=== PATIENT | female | born 1995 | race African-American/Black ===

== ENCOUNTER 2022-03-25 14:24 | Inpatient (IN) | payer OTHER ==
[2022-03-25] MEDS ORDERED: SODIUM CHLORIDE 1,000 ML IV STA ×2 (16:42→20:02)
[2022-03-25] MEDS ORDERED: ONDANSETRON 4 MG/2 ML VIAL IVPUSH ONE ×2 (16:42→21:29)
[2022-03-25] MEDS ORDERED: ACETAMINOPHEN 1000 MG/100 ML BAG IVPB ONE (16:42)
[2022-03-25] MEDS ORDERED: ACETAMINOPHEN INJECTION 100 ML IVPB ONE (16:55)
[2022-03-25] MEDS ORDERED: ONDANSETRON 4 MG/2 ML VIAL ONE ×2 (16:56→21:29)
[2022-03-25 17:52] LABS: HEMATOCRIT 36.6 % (32.4-45.2); HEMOGLOBIN 12.5 GM/dL (10.7-15.3); MCH 28.6 pg (25.7-33.7); MEAN CELL VOLUME 84.1 fl (80-96); MEAN PLT VOLUME 8.8 fl (7.5-11.1); PLATELET COUNT 341 10^3/uL (134-434); RBC 4.35 M/mm3 (3.60-5.2)
[2022-03-25 17:56] LABS: WHITE BLOOD COUNT 30.5 K/mm3 (4.0-10.0)
[2022-03-25 18:07] LABS: ALBUMIN 4.3 g/dl (3.4-5.0); BLOOD UREA NITROGEN 14.3 mg/dL (7-18)
[2022-03-25 18:10] LABS: CREATININE 0.9 mg/dL (0.55-1.3)
[2022-03-25 18:11] LABS: BILIRUBIN,TOTAL 0.6 mg/dL (0.2-1)
[2022-03-25 18:12] LABS: TOT PROT 8.1 g/dl (6.4-8.2)
[2022-03-25 18:18] LABS: ANISOCYTOSIS 0; HELMET CELLS 0; HOWELL-JOLLY BODIES 0; MACROCYTOSIS 0; OVALOCYTE 0; ROULEAU 0; SICKELED CELLS 0; TARGET CELLS 0; TEAR DROP CELLS 0; TOXIC GRANULATION 0
[2022-03-25] MEDS ORDERED: CEFTRIAXONE 1,000 MG in DEXTROSE 5%-WATER - 50 ML IVPB ONE (20:02)
[2022-03-25 20:06] LABS: EPI CELLS 1 /uL (0-25.1); HYALINE CASTS 2 /uL (0-3.1); URINE APPEARANCE CLOUDY; URINE BACTERIA >9,000 /uL (0-1359); URINE BILIRUBIN NEGATIVE (NEGATIVE); URINE COLOR YELLOW; URINE GLUCOSE (UA) NEGATIVE (NEGATIVE); URINE KETONE NEGATIVE (NEGATIVE); URINE LEUK ESTERASE 1+ (NEGATIVE); URINE NITRITE POSITIVE (NEGATIVE); URINE PROTEIN TRACE (NEGATIVE); URINE RBC 48 /uL (0-23.9); URINE UROBILINOGEN 0.2 mg/dL (0.2-1.0); URINE WBC 361 /uL (0-25.8)
[2022-03-25 20:07] LABS: HCG,QUALITATIVE URINE Negative
[2022-03-25] MEDS ORDERED: CEFTRIAXONE 1 GM/50 ML BAG ONE (20:08)
[2022-03-25 20:11] LABS: LACTIC ACID 2.8 mmol/L (0.4-2.0)
[2022-03-25] MEDS ORDERED: KETOROLAC TROMETHAMINE 30 MG/1 ML VIAL IVPUSH ONE (21:57)
[2022-03-25] MEDS ORDERED: KETOROLAC TROMETHAMINE 30 MG/1 ML VIAL ONE (22:03)
[2022-03-25 22:39] LABS: LACTIC ACID 2.3 mmol/L (0.4-2.0)
[2022-03-25 22:49] LABS: HEMATOCRIT 34.5 % (32.4-45.2); HEMOGLOBIN 11.4 GM/dL (10.7-15.3); MCH 28.1 pg (25.7-33.7); MEAN CELL VOLUME 85.1 fl (80-96); MEAN PLT VOLUME 9.1 fl (7.5-11.1); PLATELET COUNT 309 10^3/uL (134-434); RBC 4.06 M/mm3 (3.60-5.2); RDW 12.3 % (11.6-15.6); WHITE BLOOD COUNT 29.2 K/mm3 (4.0-10.0)
[2022-03-25 23:12] LABS: ANISOCYTOSIS 0; HELMET CELLS 0; HOWELL-JOLLY BODIES 0; MACROCYTOSIS 0; OVALOCYTE 0; ROULEAU 0; SICKELED CELLS 0; TARGET CELLS 0; TEAR DROP CELLS 0; TOXIC GRANULATION 0
[2022-03-26] MEDS ORDERED: ALBUTEROL SO4 HFA INHALER IH PRN (01:17)
[2022-03-26] MEDS: SODIUM CHLORIDE 1,000 ML IV SCH ×2 (02:07→16:00)
[2022-03-26] MEDS ORDERED: ACETAMINOPHEN 1000 MG/100 ML BAG IVPB ONE (03:07)
[2022-03-26 06:27] LABS: BASO % 0.3 % (0-2.0); HEMATOCRIT 32.2 % (32.4-45.2); HEMOGLOBIN 10.9 GM/dL (10.7-15.3); LYMPH % 5.7 % (8-40); MCH 28.4 pg (25.7-33.7); MCHC 33.8 g/dl (32.0-36.0); MEAN PLT VOLUME 8.9 fl (7.5-11.1); MONO % 6.4 % (3.8-10.2); NEUT % 87.6 % (42.8-82.8); PLATELET COUNT 298 10^3/uL (134-434); RBC 3.83 M/mm3 (3.60-5.2); RDW 12.4 % (11.6-15.6)
[2022-03-26 06:31] LABS: WHITE BLOOD COUNT 30.1 K/mm3 (4.0-10.0)
[2022-03-26 06:46] LABS: BLOOD UREA NITROGEN 12.3 mg/dL (7-18); CALCIUM 8.8 mg/dL (8.5-10.1)
[2022-03-26 06:47] LABS: ALBUMIN 3.4 g/dl (3.4-5.0)
[2022-03-26 06:50] LABS: CREATININE 0.9 mg/dL (0.55-1.3)
[2022-03-26 06:51] LABS: BILIRUBIN,TOTAL 0.6 mg/dL (0.2-1); TOT PROT 6.7 g/dl (6.4-8.2)
[2022-03-26 08:39] LABS: ANISOCYTOSIS 2+; MACROCYTOSIS 0
[2022-03-26] MEDS ORDERED: CEFTRIAXONE 1 GM in DEXTROSE 5%-WATER - 50 ML IVPB SCH (10:00)
[2022-03-26] MEDS ORDERED: ENOXAPARIN NA (PORCINE) 40 MG/0.4 ML DISP.SYRIN SQ ONE (10:00)
[2022-03-26] MEDS ORDERED: CEFTRIAXONE 1 GM/50 ML BAG ONE ×2 (10:01→11:13)
[2022-03-26] MEDS ORDERED: CEFTRIAXONE 1 GM in DEXTROSE 5%-WATER - 50 ML IVPB ONE (11:00)
[2022-03-26] MEDS: ENOXAPARIN NA (PORCINE) 40 MG/0.4 ML DISP.SYRIN SQ SCH (11:03)
[2022-03-26] MEDS: ACETAMINOPHEN 325 MG TABLET (FP) PO PRN ×2 (11:39→18:55)
[2022-03-26] MEDS: KETOROLAC TROMETHAMINE 30 MG/1 ML VIAL IVPUSH PRN (16:34)
[2022-03-26 17:15] VITALS: BMI 27.7
[2022-03-26] MEDS ORDERED: PIPERACILLIN/TAZOBACTAM 3.375 GM VIAL IVPB ONE (17:36)
[2022-03-26] MEDS ORDERED: DEXTROSE 5%-WATER - 50 ML IVPB ONE (17:36)
[2022-03-26] MEDS: PIPERACILLIN/TAZOB 3.375 GM 3.375 GM in DEXTROSE 5%-WATER - 50 ML IVPB SCH (18:00)
[2022-03-26] MEDS: ESCITALOPRAM OXALATE 10 MG TABLET PO SCH (21:24)
[2022-03-27] MEDS ORDERED: PIPERACILLIN/TAZOBACTAM 3.375 GM VIAL IVPB ONE ×3 (01:25→17:15)
[2022-03-27] MEDS ORDERED: DEXTROSE 5%-WATER - 50 ML IVPB ONE ×3 (01:25→17:15)
[2022-03-27] MEDS: ACETAMINOPHEN 325 MG TABLET (FP) PO PRN ×2 (01:29→21:25)
[2022-03-27] MEDS: PIPERACILLIN/TAZOB 3.375 GM 3.375 GM in DEXTROSE 5%-WATER - 50 ML IVPB SCH ×3 (01:29→17:17)
[2022-03-27] MEDS: SODIUM CHLORIDE 1,000 ML IV SCH ×2 (01:52→20:36)
[2022-03-27] MEDS ORDERED: ONDANSETRON 4 MG/2 ML VIAL IVPUSH ONE (02:04)
[2022-03-27] MEDS: KETOROLAC TROMETHAMINE 30 MG/1 ML VIAL IVPUSH PRN ×3 (06:23→20:31)
[2022-03-27] MEDS: ENOXAPARIN NA (PORCINE) 40 MG/0.4 ML DISP.SYRIN SQ SCH (09:03)
[2022-03-27 09:37] LABS: HEMATOCRIT 31.3 % (32.4-45.2); HEMOGLOBIN 10.4 GM/dL (10.7-15.3); MCH 28.3 pg (25.7-33.7); MCHC 33.3 g/dl (32.0-36.0); MEAN CELL VOLUME 85.2 fl (80-96); MEAN PLT VOLUME 9.2 fl (7.5-11.1); PLATELET COUNT 258 10^3/uL (134-434); RBC 3.67 M/mm3 (3.60-5.2); RDW 12.6 % (11.6-15.6); WHITE BLOOD COUNT 27.2 K/mm3 (4.0-10.0)
[2022-03-27] MEDS ORDERED: CEFTRIAXONE 2 GM in DEXTROSE 5%-WATER 100 ML IVPB SCH (10:00)
[2022-03-27 10:05] LABS: ANISOCYTOSIS 2+; MACROCYTOSIS 0
[2022-03-27 10:18] LABS: BLOOD UREA NITROGEN 9.7 mg/dL (7-18); CALCIUM 8.8 mg/dL (8.5-10.1)
[2022-03-27 10:20] LABS: MAGNESIUM 1.9 mg/dL (1.8-2.4)
[2022-03-27 10:23] LABS: CREATININE 0.8 mg/dL (0.55-1.3); PHOSPHOROUS 1.8 mg/dL (2.5-4.9); TOT PROT 6.4 g/dl (6.4-8.2)
[2022-03-27] MEDS ORDERED: POTASSIUM PHOSPHATE 30 MM in DEXTROSE 5%-WATER - 500 ML IVPB ONE (10:54)
[2022-03-27] MEDS ORDERED: NAPH,MB-DB/K PH,MBDB POWDER PACKET PO ONE (10:54)
[2022-03-27] MEDS ORDERED: POTASSIUM CHLORIDE ORAL LIQUID 20 MEQ/15 ML PO ONE (10:55)
[2022-03-27] MEDS: ONDANSETRON 4 MG/2 ML VIAL IVPUSH PRN (20:38)
[2022-03-27] MEDS: ESCITALOPRAM OXALATE 10 MG TABLET PO SCH (21:26)
[2022-03-28] MEDS ORDERED: DEXTROSE 5%-WATER - 50 ML IVPB ONE ×3 (00:39→17:07)
[2022-03-28] MEDS ORDERED: PIPERACILLIN/TAZOBACTAM 3.375 GM VIAL IVPB ONE ×3 (00:39→17:07)
[2022-03-28] MEDS: PIPERACILLIN/TAZOB 3.375 GM 3.375 GM in DEXTROSE 5%-WATER - 50 ML IVPB SCH ×3 (01:04→17:13)
[2022-03-28] MEDS: ACETAMINOPHEN 325 MG TABLET (FP) PO PRN ×2 (05:12→21:39)
[2022-03-28] MEDS: ONDANSETRON 4 MG/2 ML VIAL IVPUSH PRN ×2 (05:13→16:17)
[2022-03-28] MEDS: SODIUM CHLORIDE 1,000 ML IV SCH ×3 (05:26→23:00)
[2022-03-28] MEDS ORDERED: CEFTRIAXONE 2,000 MG in DEXTROSE 5%-WATER - 50 ML IVPB SCH (08:30)
[2022-03-28] MEDS ORDERED: DEXTROSE 5%-WATER 100 ML IVPB ONE ×2 (08:35→09:02)
[2022-03-28] MEDS: CEFTRIAXONE 2 GM in DEXTROSE 5%-WATER 100 ML IVPB SCH ×2 (09:03→09:10)
[2022-03-28] MEDS: ENOXAPARIN NA (PORCINE) 40 MG/0.4 ML DISP.SYRIN SQ SCH (09:03)
[2022-03-28 10:00] LABS: HEMATOCRIT 29.6 % (32.4-45.2); HEMOGLOBIN 9.8 GM/dL (10.7-15.3); MCH 28.5 pg (25.7-33.7); MCHC 33.1 g/dl (32.0-36.0); MEAN CELL VOLUME 86.1 fl (80-96); MEAN PLT VOLUME 9.2 fl (7.5-11.1); PLATELET COUNT 262 10^3/uL (134-434); RBC 3.44 M/mm3 (3.60-5.2); RDW 12.4 % (11.6-15.6); WHITE BLOOD COUNT 21.7 K/mm3 (4.0-10.0)
[2022-03-28 10:37] LABS: BLOOD UREA NITROGEN 9.3 mg/dL (7-18); CALCIUM 8.7 mg/dL (8.5-10.1)
[2022-03-28 10:41] LABS: CREATININE 0.8 mg/dL (0.55-1.3)
[2022-03-28 10:59] LABS: ANISOCYTOSIS 1+; MACROCYTOSIS 1+
[2022-03-28] MEDS: POLYETHYLENE GLYCOL (HEALTHYLAX) 3350 17 GM PACKET PO PRN (12:55)
[2022-03-28] MEDS: LACTOBACILLUS ACIDOPHILUS 1 TABLET PO SCH (16:34)
[2022-03-28] MEDS: ESCITALOPRAM OXALATE 10 MG TABLET PO SCH (21:38)
[2022-03-29] MEDS ORDERED: PIPERACILLIN/TAZOBACTAM 3.375 GM VIAL IVPB ONE ×3 (00:23→17:08)
[2022-03-29] MEDS ORDERED: DEXTROSE 5%-WATER - 50 ML IVPB ONE ×3 (00:23→17:08)
[2022-03-29] MEDS: PIPERACILLIN/TAZOB 3.375 GM 3.375 GM in DEXTROSE 5%-WATER - 50 ML IVPB SCH ×3 (01:22→17:11)
[2022-03-29] MEDS: ACETAMINOPHEN 325 MG TABLET (FP) PO PRN (09:13)
[2022-03-29] MEDS: POLYETHYLENE GLYCOL (HEALTHYLAX) 3350 17 GM PACKET PO PRN (09:13)
[2022-03-29] MEDS: LACTOBACILLUS ACIDOPHILUS 1 TABLET PO SCH (09:14)
[2022-03-29] MEDS: ENOXAPARIN NA (PORCINE) 40 MG/0.4 ML DISP.SYRIN SQ SCH (09:14)
[2022-03-29 10:13] LABS: HEMATOCRIT 30.4 % (32.4-45.2); HEMOGLOBIN 9.9 GM/dL (10.7-15.3); MCH 27.8 pg (25.7-33.7); MCHC 32.5 g/dl (32.0-36.0); MEAN CELL VOLUME 85.7 fl (80-96); MEAN PLT VOLUME 9.1 fl (7.5-11.1); PLATELET COUNT 327 10^3/uL (134-434); RBC 3.55 M/mm3 (3.60-5.2); RDW 12.7 % (11.6-15.6); WHITE BLOOD COUNT 18.9 K/mm3 (4.0-10.0)
[2022-03-29 10:44] LABS: CALCIUM 8.8 mg/dL (8.5-10.1)
[2022-03-29 10:48] LABS: CREATININE 0.8 mg/dL (0.55-1.3)
[2022-03-29 11:05] LABS: ANISOCYTOSIS 2+; MACROCYTOSIS 0
[2022-03-29] MEDS ORDERED: ALBUTEROL SO4 0.083% IH SOL 2.5 MG/3 ML VIAL.NEB. NEB PRN (11:29)
[2022-03-29] MEDS ORDERED: ALBUTEROL SO4 0.083% IH SOL 2.5 MG/3 ML VIAL.NEB. NEB ONE (12:15)
[2022-03-29] MEDS: SODIUM CHLORIDE 1,000 ML IV SCH (16:17)
[2022-03-29] MEDS: ESCITALOPRAM OXALATE 10 MG TABLET PO SCH (21:45)
[2022-03-30] MEDS ORDERED: DEXTROSE 5%-WATER - 50 ML IVPB ONE ×2 (01:31→08:42)
[2022-03-30] MEDS ORDERED: PIPERACILLIN/TAZOBACTAM 3.375 GM VIAL IVPB ONE ×2 (01:31→08:42)
[2022-03-30] MEDS: PIPERACILLIN/TAZOB 3.375 GM 3.375 GM in DEXTROSE 5%-WATER - 50 ML IVPB SCH ×2 (01:37→08:59)
[2022-03-30] MEDS ORDERED: FUROSEMIDE 40 MG/4 ML INJECTABLE VIAL IVPUSH ONE ×2 (08:25)
[2022-03-30] MEDS: ENOXAPARIN NA (PORCINE) 40 MG/0.4 ML DISP.SYRIN SQ SCH (08:59)
[2022-03-30] MEDS: LACTOBACILLUS ACIDOPHILUS 1 TABLET PO SCH (08:59)
[2022-03-30 10:43] LABS: HEMATOCRIT 32.3 % (32.4-45.2); HEMOGLOBIN 10.7 GM/dL (10.7-15.3); MCH 28.2 pg (25.7-33.7); MEAN CELL VOLUME 85.3 fl (80-96); MEAN PLT VOLUME 8.5 fl (7.5-11.1); PLATELET COUNT 381 10^3/uL (134-434); RBC 3.79 M/mm3 (3.60-5.2); RDW 12.9 % (11.6-15.6); WHITE BLOOD COUNT 17.2 K/mm3 (4.0-10.0)
[2022-03-30 11:15] LABS: ANISOCYTOSIS 0; HELMET CELLS 0; HOWELL-JOLLY BODIES 0; MACROCYTOSIS 0; OVALOCYTE 0; ROULEAU 0; SICKELED CELLS 0; TARGET CELLS 0; TEAR DROP CELLS 0; TOXIC GRANULATION 0
[2022-03-30 11:16] LABS: CALCIUM 8.9 mg/dL (8.5-10.1)
[2022-03-30 11:17] LABS: BLOOD UREA NITROGEN 9.8 mg/dL (7-18)
[2022-03-30 11:20] LABS: CREATININE 0.7 mg/dL (0.55-1.3)
[2022-03-30 14:17] VITALS: BP 137/87; PULSE 85; TEMP 98.6
== END 2022-03-30 16:39 | disposition home or self-care (01) | DRG 872 ==
LOC: JER 14:24 → JERBED 23:54 → J6S 03-26 15:32
PROVIDERS: ADMIT Internal Medicine; ATTEND Internal Medicine
DX: A41.50 Gram-negative sepsis, unspecified (principal); N12 Tubulo-interstitial nephritis, not specified as acute or chronic; N13.30 Unspecified hydronephrosis; E87.2 Acidosis; J45.909 Unspecified asthma, uncomplicated; F41.8 Other specified anxiety disorders; D72.829 Elevated white blood cell count, unspecified
CPT/HCPCS: 0241U-QW; 36415; 71046-TC-FY; 74177-TC; 78708-TC; 80048; 80053; 81003; 83605; 83690; 83735; 84100; 84703; 85025; 87040; 87086; 87186; 93005; 93010; 94010; 94150; 94640; 99285-25; A9562; C9803-CS; Q9967; U0003; U0005